=== PATIENT | female | born 1995 | race African-American/Black ===

== ENCOUNTER 2017-11-07 20:38 | Emergency (ER) | payer OTHER, SELFPAY ==
[2017-11-07 21:36] LABS: Bilirubin Negative (Negative); Blood, Urine Negative (Negative); Clarity CLOUDY (Clear); Glucose, Urine (Dipstick) Negative (Negative); Leukocyte Small (Negative); Nitrite Negative (Negative); Protein, Urine (Dipstick) Negative (Neg-Trace); Specific Gravity, Urine 1.017 (1.002-1.036); Urobilinogen 0.2 mg/dL (0.2-1.0)
[2017-11-07 21:37] LABS: Bacteria/HPF 4+ HPF (None Seen); Hyaline Casts/LPF 0-3 HYALINE CAST LPF (0-3 Hyaline); Pathc Cast-AUWi Flag 0.14 (0-2.49); RBC/HPF None Seen HPF (0-3); Squamous Epithelial None Seen HPF (0-3)
[2017-11-07 22:08] LABS: Pregu Control Background? CLEAR/WHITE (CLR/WHITE); Pregu Control Bar Appear? YES (CONTROL BAR); Specific Gravity 1.017 (1.002-1.036)
[2017-11-07 22:09] LABS: Pregnancy Test - Urine (BHCG) Negative (Negative)
[2017-11-07 22:20] LABS: Hemoglobin 10.9 g/dL (12.0-16.0); Lymphocytes 59 % (21-51); MDiff Complete? YES; Mean Corpuscular HGB CONC 33.4 g/dL (32.0-36.0); Mean Corpuscular Hemoglobin 27.2 pg (27.0-31.0); Mean Corpuscular Volume 81.4 fL (78.0-98.0); Mean Platelet Volume 6.9 fL (7.4-10.4); Monocytes 1 % (0-10); Neutrophil 40 % (42-75); PLT Morphology Comment Appears Adequate; Platelet Count 275 thou/uL (130-400); RBC Distribution Width 17.4 % (11.5-14.5); Red Blood Cell (RBC) Count 4.02 mill/uL (4.20-5.40); White Blood Cell (WBC) Count 5.5 thou/uL (4.8-10.8)
[2017-11-07] MEDS ORDERED: metroNIDAZOLE 250 MG TAB ONE (22:37)
[2017-11-07] MEDS ORDERED: Ondansetron ODT 4 MG TAB ONE (22:37)
[2017-11-07] MEDS ORDERED: cefTRIAXone\\ROCEPHIN 250 MG VIAL ONE (22:37)
[2017-11-07] MEDS ORDERED: Azithromycin 250 MG TAB ONE (22:37)
[2017-11-07] MEDS ORDERED: Lidocaine 1% PF 5 ML VIAL ONE (22:37)
--- NOTE | 2017-11-07 23:08 | ULT ---
PELVIC ULTRASOUND: HISTORY: Pelvis pain. TECHNIQUE: Multiple longitudinal and transverse images of the pelvis obtained using a Multi-Hertz endovaginal tr ansducer. Real-time, color-flow, and spectral wave-form Doppler analysis were used to evaluate the p jacky. FINDINGS: Images demonstrate the uterus to be unremarkable, measuring 7.4 x 3.8 x 4.7 cm, without evidence of m asses or lesions. The endometrium has a double-wall thickness of 10 mm. Both ovaries are visualized with good blood flow. The right ovary measures 4.3 x 1.8 x 3.5 cm, and the left ovary 4.5 x 3.4 x 3 .8 cm. The left ovary does contain a 3 x 2.3 x 2.7 cm cyst. A small amount of free pelvic fluid is seen. IMPRESSION: Moderate sized left ovarian cyst or cystic lesion. Followup images to resolution recommended. POS: [facility]
[2017-11-08 22:45] LABS: Chlamydia by PCR Not Detected (NotDetected); GC by PCR Not Detected (NotDetected)
== END 2017-11-07 23:23 | disposition home or self-care (01) ==
LOC: ERS 20:38
DX: N93.9 Abnormal uterine and vaginal bleeding, unspecified (principal); A74.9 Chlamydial infection, unspecified; A54.9 Gonococcal infection, unspecified; A59.9 Trichomoniasis, unspecified; F17.210 Nicotine dependence, cigarettes, uncomplicated
CPT/HCPCS: 36415; 76856; 81003; 81015; 81025; 84702; 85025; 86900; 86901; 87480; 87491; 87510; 87591; 87660; 96372; J0696; J2001; Q0162

== ENCOUNTER 2017-11-08 02:01 | Emergency (ER) | payer OTHER, SELFPAY | END 2017-11-08 03:22 | disposition home or self-care (01) | LOC: ERS 02:01 | DX: B88.9 Infestation, unspecified (principal); F17.210 Nicotine dependence, cigarettes, uncomplicated | CPT/HCPCS: 99282 ==